=== PATIENT | female | born 1955 | race Caucasian/White ===

== ENCOUNTER → 2017-07-03 | Outpatient (CLI) | payer OTHER ==
[~2017-07-03] MED LIST: BP MED PO
[2017-07-03 12:41] LABS: BASO % 0.4 %; BASO ABS # 0.02 K/uL (0-0.2); COMPLETE YES; EOS % 2.2 %; HEMATOCRIT 41.7 % (37-47); IG% 0.2 %; LYMPH % 33.1 %; LYMPH ABS # 1.64 K/uL (1.2-3.4); MEAN CELL VOLUME 88.3 fL (80-100); MEAN CORPUSCULAR HGB CONC 32.9 g/dl (32-36); MEAN PLATELET VOLUME 11.1 fL (7.4-10.4); MONO % 6.9 %; NEUT % 57.2 %; PLATELET COUNT 204 K/uL (130-400); RED BLOOD COUNT 4.72 M/uL (4.2-5.4); WHITE BLOOD COUNT 4.95 K/uL (4.8-10.8)
[2017-07-03 12:53] LABS: BLOOD UREA NITROGEN 12 mg/dl (7-18); BUN/CREATININE RATIO 14.3 (10-20); CALCIUM 9.1 mg/dl (8.5-10.1); CARBON DIOXIDE 31 mmol/L (21-32); CHLORIDE 105 mmol/L (98-107); CREATININE 0.81 mg/dl (0.60-1.20); GLUCOSE 80 mg/dl (70-99); POTASSIUM 4.2 mmol/L (3.5-5.1); SODIUM 139 mmol/L (136-145)
[2017-07-03 13:00] LABS: ALB/GLOB RATIO 1.2 (0.9-2); ALKALINE PHOSPHATASE 109 U/L (45-117); ALT/SGPT 24 U/L (12-78); AST/SGOT 19 U/L (15-37)
== END | disposition home or self-care (01) ==
LOC: C.LABSPEC 12:14
PROVIDERS: ATTEND Internal Medicine
DX: Z13.6 Encounter for screening for cardiovascular disorders (principal); E55.9 Vitamin D deficiency, unspecified; L23.7 Allergic contact dermatitis due to plants, except food

== ENCOUNTER → 2017-10-11 | Outpatient (CLI) | payer OTHER | END | disposition home or self-care (01) | LOC: C.LABSPEC 17:44 | PROVIDERS: ATTEND Internal Medicine | DX: Z12.11 Encounter for screening for malignant neoplasm of colon (principal) ==

== ENCOUNTER 2018-01-18 16:47 | Emergency (ER) | payer OTHER ==
[~2018-01-18] VITALS: Ht 149.9 cm; Wt 48.0 kg
[2018-01-18 16:50] VITALS: TEMP 36.5; Ht 149.9 cm; Wt 48.0 kg
[2018-01-18] MEDS ORDERED: METOPROLOL TARTRATE 1 MG/ML VIAL IV STA (17:57)
[2018-01-18] MEDS ORDERED: ASPI81TA28 PO (18:08)
[2018-01-18] MEDS ORDERED: METOPROLOL PO (18:08)
[2018-01-18] MEDS ORDERED: CHOL1000 PO (18:09)
[2018-01-18] MEDS ORDERED: MELA3TAB18 PO (18:09)
--- NOTE | 2018-01-18 18:19 | DIAGNOSTIC IMAGING REPORT ---
CHEST ONE VIEW PORTABLE CLINICAL HISTORY: 62 years-old Female presenting with HTN urgency, dizziness. TECHNIQUE: Portable upright AP view of the chest was obtained. COMPARISON: 11/24/2006. FINDINGS: Cardiomediastinal silhouette normal. Lungs and pleural spaces clear. Osseous structures normal. Upper abdomen normal. IMPRESSION: 1. No acute cardiopulmonary disease. Electronically signed by: Antonino Sweet M.D. 01/18/2018 6:18 PM Dictated Date/Time: 01/18/2018 6:18 PM
--- NOTE | 2018-01-18 18:31 | EMERGENCY ROOM VISIT NOTE ---
History First contact with patient: 17:34 Chief Complaint: HYPERTENSION Stated Complaint: DIZZY, BLOOD PRESSURE HIGH, SPASMS IN NECK History of Present Illness The patient is a 62 year old female who presents to the Emergency Room with complaints of hypertension that she noticed this morning. The patient reports getting slightly lightheaded, which is usually what happens when her blood pressure is elevated. She went to her neighbor's house and took her blood pressure. It was 190/90's. Heart rate was in the 70s. She also is concerned that she is having a "spasm on the left side of her neck." It is intermittent throughout the day. She denies any significant pain. No burning or tearing sensation. She denies any vertiginous symptoms such as nausea, vomiting or spinning sensation. No changes in vision. She denies any recent changes in her medications. She reportedly takes metoprolol once daily for hypertension. She denies any chest pain or pressure. No difficulty breathing. Review of Systems 10 system review performed and negative unless noted in HPI or below Past Medical/Surgical History Hypertension Family History Heart disease Social History Smoking Status: Never Smoker Alcohol Use: none Marital Status: Housing Status: lives with significant other Current/Historical Medications Scheduled Aspirin (Aspirin Ec), 81 MG PO Q2D Cholecalciferol (Vitamin D3), 1,000 INTER.UNIT PO DAILY Melatonin (Melatonin), 3 MG PO HS Metoprolol Tartrate (Lopressor) (Lopressor), 12.5 TAB PO BID [Metoprolol], 50 MG PO DAILY Physical Exam Vital Signs Date Time Temp Pulse Resp B/P (MAP) Pulse Ox O2 Delivery O2 Flow Rate FiO2 01/18/18 21:45 74 16 128/82 96 Room Air 01/18/18 20:56 74 16 144/86 96 Room Air 01/18/18 20:09 59 16 186/108 96 Room Air 01/18/18 19:04 56 16 181/95 96 Room Air 01/18/18 18:47 68 183/91 01/18/18 18:45 68 18 183/91 96 Room Air 01/18/18 18:30 64 01/18/18 16:50 36.5 74 20 191/99 97 Room Air Physical Exam GENERAL: 62-year-old female, in no acute distress, nondiaphoretic, well- developed well-nourished. SKIN: The skin was without rashes, erythema, edema, or bruising. HEAD: Normocephalic atraumatic. EYES: Pupils equal round and reactive to light and accommodation. Conjunctivae without injection, sclerae without icterus. Extraocular movements intact. MOUTH: Mucous membranes slightly dry. Tonsils are not enlarged. Pharynx without erythema or exudate. Uvula midline. Airway patent. Tongue does not deviate. NECK: Supple without nuchal rigidity. No lymphadenopathy. Cervical spine is nontender. No JVD. No tenderness to palpation or muscle spasms appreciated. No carotid bruit bilaterally. HEART: Regular rate and rhythm without murmurs gallops or rubs. LUNGS: Clear to auscultation bilaterally without wheezes, rales or rhonchi. No accessory muscle use. ABDOMEN: Positive bowel sounds x 4.Soft, MUSCULOSKELETAL: No muscle atrophy, erythema, or edema noted. Strength 5/5 throughout. NEURO: Patient was alert and oriented to person place and time. Normal sensation to touch. No focal neurological deficits. Medical Decision & Procedures ER Provider Diagnostic Interpretation: Renal ultrasound IMPRESSION: 1. No evidence of renal artery stenosis. Electronically signed by: Antonino Sweet M.D. 01/18/2018 9:01 PM Dictated Date/Time: 01/18/2018 8:59 PM The status of this report is Signed. Draft = Not yet reviewed or approved by Radiologist. Signed = Reviewed and approved by Radiologist. <AttendingPhy></AttendingPhy> <FamilyPhy>Bonifacio Park M.D.</FamilyPhy> < PrimaryPhy>Bonifacio Park M.D.</PrimaryPhy> <UnitNumber>[id number]</ UnitNumber> <VisitNumber>[id number]</VisitNumber> <PatientName>ALYCE ZABALA< /PatientName> <DateOfBirth>1955</DateOfBirth> <Location>[facility]</Location> < ServiceDate>01/18/18</ServiceDate> <MNE>ESINDI</MNE> <OrderingPhy>America Santiago PA-C</OrderingPhy> <OrderingPhyMNE>f rep ord dr nicholson</OrderingPhyMNE> < DictatingPhyMNE>f rep dict dr nicholson</DictatingPhyMNE> <CCListMNE>f rep ct mne</ CCListMNE> <AdmittingPhyMNE>f pt admit dr nicholson</AdmittingPhyMNE> <AttendingPhyMNE >f pt attend dr nicholson</AttendingPhyMNE> <ConsultingPhyMNE>f pt consult dr nicholson</ConsultingPhyMNE> <FamilyPhyMNE>f pt fam dr nicholson</FamilyPhyMNE> <OtherPhyMNE>f pt other dr nicholson</OtherPhyMNE> < PrimaryPhyMNE>f pt prim care dr nicholson</PrimaryPhyMNE> <ReferringPhyMNE>f pt referring dr nicholson</ReferringPhyMNE> CT head w/o contrast IMPRESSION: 1. No acute intracranial abnormality. Electronically signed by: Antonino Sweet M.D. 01/18/2018 8:03 PM Dictated Date/Time: 01/18/2018 8:02 PM The status of this report is Signed. Draft = Not yet reviewed or approved by Radiologist. Signed = Reviewed and approved by Radiologist. <AttendingPhy></AttendingPhy> <FamilyPhy>Bonifacio Park M.D.</FamilyPhy> < PrimaryPhy>Bonifacio Park M.D.</PrimaryPhy> <UnitNumber>[id number]</ UnitNumber> <VisitNumber>[id number]</VisitNumber> <PatientName>ALYCE ZABALA Y< /PatientName> <DateOfBirth>1955</DateOfBirth> <Location>[facility]</Location> < ServiceDate>01/18/18</ServiceDate> <MNE>ESINDI</MNE> <OrderingPhy>America Santiago PA-C</OrderingPhy> <OrderingPhyMNE>f rep ord dr nicholson</OrderingPhyMNE> < DictatingPhyMNE>f rep dict dr nicholson</DictatingPhyMNE> <CCListMNE>f rep ct mne</ CCListMNE> <AdmittingPhyMNE>f pt admit dr nicholson</AdmittingPhyMNE> <AttendingPhyMNE >f pt attend dr nicholson</AttendingPhyMNE> <ConsultingPhyMNE>f pt consult dr nicholson</ConsultingPhyMNE> <FamilyPhyMNE>f pt fam dr nicholson</FamilyPhyMNE> <OtherPhyMNE>f pt other dr nicholson</OtherPhyMNE> < PrimaryPhyMNE>f pt prim care dr nicholson</PrimaryPhyMNE> <ReferringPhyMNE>f pt referring dr nicholson</ReferringPhyMNE> CXR IMPRESSION: 1. No acute cardiopulmonary disease. Electronically signed by: Antonino Sweet M.D. 01/18/2018 6:18 PM Dictated Date/Time: 01/18/2018 6:18 PM The status of this report is Signed. Draft = Not yet reviewed or approved by Radiologist. Signed = Reviewed and approved by Radiologist. Laboratory Results 01/18/18 18:42 Red Blood Count 4.78, Mean Corpuscular Volume 87.0, Mean Corpuscular Hemoglobin 29.7, Mean Corpuscular Hemoglobin Concent 34.1, Mean Platelet Volume 10.6, Neutrophils (%) (Auto) 57.1, Lymphocytes (%) (Auto) 34.6, Monocytes (%) (Auto) 6.1, Eosinophils (%) (Auto) 1.4, Basophils (%) (Auto) 0.5, Neutrophils # (Auto) 3.28, Lymphocytes # (Auto) 1.99, Monocytes # (Auto) 0.35, Eosinophils # (Auto) 0.08, Basophils # (Auto) 0.03 01/18/18 18:42 Test 01/18/18 18:19 01/18/18 18:42 Urine Color YELLOW Urine Appearance CLEAR (CLEAR) Urine pH 8.0 (4.5-7.5) Urine Specific Elkins 1.004 (1.000-1.030) Urine Protein NEG (NEG) Urine Glucose (UA) NEG (NEG) Urine Ketones NEG (NEG) Urine Occult Blood NEG (NEG) Urine Nitrite NEG (NEG) Urine Bilirubin NEG (NEG) Urine Urobilinogen NEG (NEG) Urine Leukocyte Esterase NEG (NEG) White Blood Count 5.75 K/uL (4.8-10.8) Red Blood Count 4.78 M/uL (4.2-5.4) Hemoglobin 14.2 g/dL (12.0-16.0) Hematocrit 41.6 % (37-47) Mean Corpuscular Volume 87.0 fL (80-100) Mean Corpuscular Hemoglobin 29.7 pg (25-34) Mean Corpuscular Hemoglobin Concent 34.1 g/dl (32-36) Platelet Count 215 K/uL (130-400) Mean Platelet Volume 10.6 fL (7.4-10.4) Neutrophils (%) (Auto) 57.1 % Lymphocytes (%) (Auto) 34.6 % Monocytes (%) (Auto) 6.1 % Eosinophils (%) (Auto) 1.4 % Basophils (%) (Auto) 0.5 % Neutrophils # (Auto) 3.28 K/uL (1.4-6.5) Lymphocytes # (Auto) 1.99 K/uL (1.2-3.4) Monocytes # (Auto) 0.35 K/uL (0.11-0.59) Eosinophils # (Auto) 0.08 K/uL (0-0.5) Basophils # (Auto) 0.03 K/uL (0-0.2) RDW Standard Deviation 42.1 fL (36.4-46.3) RDW Coefficient of Variation 13.1 % (11.5-14.5) Immature Granulocyte % (Auto) 0.3 % Immature Granulocyte # (Auto) 0.02 K/uL (0.00-0.02) Anion Gap 8.0 mmol/L (3-11) Est Creatinine Clear Calc Drug Dose 46.2 ml/min Estimated GFR () 85.1 Estimated GFR (Non- 73.4 BUN/Creatinine Ratio 14.2 (10-20) Calcium Level 9.4 mg/dl (8.5-10.1) Total Bilirubin 0.4 mg/dl (0.2-1) Aspartate Amino Transf (AST/SGOT) 25 U/L (15-37) Alanine Aminotransferase (ALT/SGPT) 26 U/L (12-78) Alkaline Phosphatase 124 U/L (45-117) Troponin I < 0.015 ng/ml (0-0.045) Total Protein 7.7 gm/dl (6.4-8.2) Albumin 4.2 gm/dl (3.4-5.0) Globulin 3.5 gm/dl (2.5-4.0) Albumin/Globulin Ratio 1.2 (0.9-2) Thyroid Stimulating Hormone (TSH) 1.140 uIu/ml (0.300-4.500) Medications Administered Medications (Trade) Dose Ordered Sig/Jaqueline Route Start Time Stop Time Status Last Admin Dose Admin Metoprolol Tartrate (Lopressor Iv) 5 mg NOW STAT IV 01/18/18 17:57 01/18/18 17:59 DC 01/18/18 18:47 5 MG Hydralazine HCl (HydrALAZINE INJ) 10 mg NOW STAT IV. 01/18/18 20:01 01/18/18 20:02 DC 01/18/18 20:09 10 MG Diphenhydramine HCl (Benadryl Inj) 25 mg NOW STAT IV 01/18/18 21:29 01/18/18 21:30 DC 01/18/18 21:33 25 MG ECG Per My Interpretation Indication: other Rate (beats per minute): 66 Rhythm: normal sinus ED Course Patient was seen and examined Vital signs including blood pressure were reviewed medications list was verified with patient Labs were obtained, and a saline lock was established An EKG was performed and reviewed by myself and my supervising physician. We discussed the case. He is in agreement with my plan. The patient was given metoprolol 5 mg IV Imaging was performed and reviewed Upon reassessment, the patient was still hypertensive. She was given hydralazine 10 mg IV. We discussed the results of her workup. She voiced understanding. The patient became very flushed. She was reassessed. She had some erythema on her face, palms of her hands and her neck. She was given Benadryl 25 mg IV. The patient was observed for an additional hour. Her symptoms resolved. She was comfortable being discharged home. I reviewed discharge instructions the patient. They voiced understanding and had no further questions. Medical Decision Differential diagnosis: Hypertensive urgency, hypertensive emergency, renal artery stenosis, vertebral artery dissection, CVA This patient is a 62-year-old female that presents the emergency department complaining of lightheadedness, muscle spasms in the left side of her neck and hypertension that started this morning. Her symptoms have been intermittent throughout the day. Her blood pressure was fairly elevated in the emergency department. The patient's EKG shows normal sinus rhythm. There are no signs of ischemia or infarction. Her troponin is negative. CT of the head was also within normal limits. Her urinalysis was reviewed. There is no proteinuria. There are no signs of organ damage. There is no signs of renal artery stenosis. The patient was first treated with metoprolol. She then was given a dose of hydralazine, which caused flushing. This resolved with 1 dose of Benadryl. I believe the patient is stable to be discharged home with close follow-up with her primary care physician and a color finisher. She was comfortable with this plan. She was given a short course of metoprolol tartrate to take as needed every 12 hours for a blood pressure greater than a systolic of 175. She was comfortable with this plan. She will continue her Toprol-XL as prescribed. She was instructed to return to the emergency department with any new or worsening symptoms. This chart was completed in part utilizing [employer] Voice Recognition software. Attempts were made to minimize the grammatical errors, random word insertions, pronoun errors and incomplete sentences. Any formal questions or concerns about the content, text or information contained within the body of this dictation should be directly addressed to the provider for clarification. Medication Reconcilliation Current Medication List: was personally reviewed by me Blood Pressure Screening Patient's blood pressure: Elevated blood pressure Blood pressure disposition: Referred to PCP Impression Primary Impression: Hypertension Departure Information Dispostion Home / Self-Care Condition GOOD Prescriptions Metoprolol Tartrate (Lopressor) (Lopressor) 25 Mg Tab 12.5 TAB PO BID for Hypertension, #10 TAB please take for a blood pressure greater than 175/90. Prov: America Santiago PA-C 01/18/18 Referrals Bonifacio Park M.D. (PCP) Irineo Holt M.D. Patient Instructions My [facility] Additional Instructions You were evaluated in the emergency department for high blood pressure. Please continue metoprolol succinate 25 mg daily as prescribed Please try to monitor blood pressure at home if possible Please monitor your symptoms. If your blood pressure is greater than 175/90, please take metoprolol tartrate 12.5 mg every 12 hours It is very important for you to follow-up closely with your primary care physician for a recheck Please also follow up with a color finisher. A number has been provided. Do not hesitate to return to the emergency department with any new, worsening or concerning symptoms; especially, severe dizziness, pain in a or chest or difficulty breathing It was a pleasure participating in your care karol
[2018-01-18 18:51] LABS: BASO % 0.5 %; BASO ABS # 0.03 K/uL (0-0.2); EOS % 1.4 %; EOS ABS # 0.08 K/uL (0-0.5); HEMATOCRIT 41.6 % (37-47); HEMOGLOBIN 14.2 g/dL (12.0-16.0); IG# 0.02 K/uL (0.00-0.02); LYMPH % 34.6 %; LYMPH ABS # 1.99 K/uL (1.2-3.4); MEAN CORPUSCULAR HEMOGLOBIN 29.7 pg (25-34); MEAN CORPUSCULAR HGB CONC 34.1 g/dl (32-36); MEAN PLATELET VOLUME 10.6 fL (7.4-10.4); MONO % 6.1 %; MONO ABS # 0.35 K/uL (0.11-0.59); NEUT % 57.1 %; NEUT ABS # 3.28 K/uL (1.4-6.5); PLATELET COUNT 215 K/uL (130-400); RED CELL DISTRIBUTION WIDTH CV 13.1 % (11.5-14.5); RED CELL DISTRIBUTION WIDTH SD 42.1 fL (36.4-46.3); WHITE BLOOD COUNT 5.75 K/uL (4.8-10.8)
[2018-01-18 19:08] LABS: ALBUMIN 4.2 gm/dl (3.4-5.0); ALT/SGPT 26 U/L (12-78); AST/SGOT 25 U/L (15-37); BLOOD UREA NITROGEN 12 mg/dl (7-18); CALCIUM 9.4 mg/dl (8.5-10.1); CARBON DIOXIDE 25 mmol/L (21-32); CREATININE 0.84 mg/dl (0.60-1.20); GLUCOSE 92 mg/dl (70-99); SODIUM 140 mmol/L (136-145)
[2018-01-18 19:19] LABS: ALKALINE PHOSPHATASE 124 U/L (45-117); TOTAL PROTEIN 7.7 gm/dl (6.4-8.2)
[2018-01-18] MEDS ORDERED: HydrALAZINE HCL 20 MG/ML VIAL IV. STA (20:01)
--- NOTE | 2018-01-18 20:05 | DIAGNOSTIC IMAGING REPORT ---
HEAD WITHOUT CONTRAST (CT) CLINICAL HISTORY: 62 years-old Female presenting with HTN urgency, high blood pressure, dizzy. TECHNIQUE: Multidetector CT imaging of the head was performed without the use of intravenous contrast. IV contrast: None. A dose lowering technique was used consistent with the principles of ALARA (as low as reasonably achievable). COMPARISON: None. CT DOSE (mGy.cm): The estimated cumulative dose is 537.48 mGy.cm. FINDINGS: Money Examiner topogram: Unremarkable. Ventricles and sulci normal in size. Brain parenchyma normal in appearance with preserved russell-white differentiation. No mass effect or midline shift. No hemorrhage or acute territorial infarct. No extra-axial fluid collection. Paranasal sinuses and mastoid air cells clear. Calvarium intact. IMPRESSION: 1. No acute intracranial abnormality. Electronically signed by: Antonino Sweet M.D. 01/18/2018 8:03 PM Dictated Date/Time: 01/18/2018 8:02 PM
--- NOTE | 2018-01-18 21:03 | DIAGNOSTIC IMAGING REPORT ---
DUPLEX RENAL ARTERY CLINICAL HISTORY: 62 years-old Female presenting with HTN-->stenosis?. TECHNIQUE: Real-time grayscale and color and spectral Doppler ultrasound imaging of the kidneys was performed. COMPARISON: None. FINDINGS: Right kidney: Normal echogenicity of renal parenchyma. Right kidney measures 9.3 cm. No hydronephrosis. No convincing evidence of calculus or mass. Intrarenal resistive indices range from 0.62 to 0.69. Normal intrarenal arterial waveforms. Renal artery patent with peak systolic velocity 78 cm/s proximally, 96 cm/s in the midportion, and 80 cm/s distally. Renal vein patent. Left kidney: Normal echogenicity of renal parenchyma. Left kidney measures 8.7 cm. No hydronephrosis. No convincing evidence of calculus or mass. Intrarenal resistive indices range from 0.58 to 0.65. Normal intrarenal arterial waveforms. Renal artery patent with peak systolic velocity 72 cm/s proximally, 112 cm/s in the midportion, and 64 cm/s distally. Renal vein patent. Abdominal aorta: Patent. Peak systolic velocity 73 cm/s. Ratio of right renal artery PSV/aortic PSV: 1.32. Ratio of left renal artery PSV/aortic PSV: 1.53. Other: None. Reference ranges: Normal main renal artery peak systolic velocity less than 180 cm/s. Ratio of renal artery PSV to aortic PSV less than 3.5 equates to normal or less than 60% stenosis. IMPRESSION: 1. No evidence of renal artery stenosis. Electronically signed by: Antonino Sweet M.D. 01/18/2018 9:01 PM Dictated Date/Time: 01/18/2018 8:59 PM
[2018-01-18] MEDS ORDERED: DiphenhydrAMINE HCL 50 MG/ML VIAL IV STA (21:29)
[2018-01-18 21:45] VITALS: BP 128/82; PULSE 74; O2SAT 96
[2018-01-18] MEDS ORDERED: METO-551 PO (22:25)
[2018-01-18] MEDS ORDERED: METO25TA56 PO (22:29)
== END 2018-01-18 22:34 | disposition home or self-care (01) ==
LOC: C.EDB 16:50 → C.EDA 22:34
DX: I10 Essential (primary) hypertension (principal); R42 Dizziness and giddiness; R25.2 Cramp and spasm; Z82.49 Family history of ischemic heart disease and other diseases of the circulatory system